=== PATIENT | female | born 1985 | race Caucasian/White ===

== ENCOUNTER → 2016-09-13 | Outpatient (CLI) | payer OTHER ==
[2016-09-13 12:03] LABS: ESTRADIOL < 19.0 PG/ML; LUTEINIZING HORMONE 1.3 mIU/mL
[2016-09-13 12:04] LABS: FOLLICLE STIMULATING HORMONE 1.8 mIU/mL
== END ==
LOC: M WUC 10:13
PROVIDERS: ATTEND Obstetrics & Gynecology
DX: N97.9 Female infertility, unspecified (principal)

== ENCOUNTER → 2016-10-02 | Outpatient (CLI) | payer OTHER | LOC: M WUC 08:36 | PROVIDERS: ATTEND Obstetrics & Gynecology | DX: N97.9 Female infertility, unspecified (principal) ==

== ENCOUNTER → 2016-11-05 | Outpatient (CLI) | payer OTHER | LOC: M WUC 15:59 | PROVIDERS: ATTEND Obstetrics & Gynecology | DX: N91.4 Secondary oligomenorrhea (principal) ==

== ENCOUNTER → 2016-11-12 | Outpatient (CLI) | payer OTHER | LOC: M WUC 15:59 | PROVIDERS: ATTEND Obstetrics & Gynecology | DX: Z32.01 Encounter for pregnancy test, result positive (principal) ==

== ENCOUNTER → 2016-11-14 | Outpatient (CLI) | payer OTHER | LOC: M WUC 15:54 | PROVIDERS: ATTEND Obstetrics & Gynecology | DX: Z32.01 Encounter for pregnancy test, result positive (principal) ==

== ENCOUNTER → 2016-11-29 | Outpatient (CLI) | payer OTHER ==
[2016-11-29 19:43] LABS: BASO # 0.1 10^3/uL (0.0-0.2); BASO % 0.6 % (0.0-1.0); EOS # 0.1 10^3/uL (0.0-0.50); IMMATURE GRANULOCYTE % 0.2 % (0-0); LYMPH # 2.5 10^3/uL (1.5-4.5); LYMPH % 29.7 % (24.0-44.0); MEAN CORPUSCULAR HGB CONC 33.1 g/dl (32.0-36.5); MEAN CORPUSCULAR VOLUME 90.9 fl (80.0-96.0); MONO # 0.5 10^3/uL (0.0-0.8); MONO % 6.1 % (0.0-5.0); NEUTROPHILS # 5.2 10^3/uL (1.8-7.7); NEUTROPHILS % 62.4 % (36.0-66.0); PLATELET COUNT, AUTOMATED 166 10^3/uL (150-450); RED CELL DISTRIBUTION WIDTH 12.1 % (11.5-14.5); WHITE BLOOD COUNT 8.4 10^3/uL (4.0-10.0)
[2016-11-29 19:55] LABS: ADD MORPHOLOGY? NO
[2016-12-02 11:01] LABS: HBsAg Prenatal NEGATIVE (NEGATIVE)
== END ==
LOC: M WUC 16:03
PROVIDERS: ATTEND Obstetrics & Gynecology
DX: Z36 Encounter for antenatal screening of mother (principal)

== ENCOUNTER → 2017-02-26 | Outpatient (CLI) | payer OTHER ==
--- NOTE | 2017-02-26 12:49 | REP ---
OBSTETRIC SONOGRAPHY: HISTORY: Supervision of for anatomy. FINDINGS: Scanning through the gravid uterus demonstrates a viable single intrauterine gestation in a cephalic lie. motion is observed and heart rate is recorder 141 beats per minute. A posterior grade 0 placenta is seen without evidence of previa or abruption. Amniotic fluid is subjectively normal. Closed cervical length is viewed transabdominally at 5.9 cm. No extrauterine abnormality is observed. No anomaly is seen. The following anatomic structures are identified today and felt to be unremarkable: cranium, choroid plexus, cavum, cerebellum and posterior fossa, face and profile, lungs, four-chamber heart with left and right ventricular outflow tract views, diaphragm, left-sided stomach, abdominal wall cord insertion, three-vessel cord, kidneys and bladder, spine, and upper and lower extremities. Biometry Chart: BPD 4.5 cm = 19 weeks 5 days HC 16.7 cm = 19 weeks 2 days AC 12.9 cm = 18 weeks 3 days FL 2.9 cm = 18 weeks 6 days HL 3.0 cm = 20 weeks 0 days CD 1.9 cm = 18 weeks 5 days HC/AC ratio 1.29 (1.06-1.25). Cephalic index normal 0.76. Estimated weight 255 grams, 0 pounds 9 ounces, 34th percentile for 19 weeks 1 day. IMPRESSION: Viable single intrauterine gestation at 19 weeks 1 day by today's composite sonographic criteria. SAMULE by today's sonography July 22, 2017. No anomaly is seen. Signed by Remi Lindsey MD 02/26/2017 03:09 P
== END ==
LOC: M RAD 11:19
PROVIDERS: ATTEND Obstetrics & Gynecology
DX: Z34.82 Encounter for supervision of other normal pregnancy, second trimester (principal); Z3A.19 19 weeks gestation of pregnancy

== ENCOUNTER → 2017-04-19 | Outpatient (CLI) | payer OTHER ==
[2017-04-19 11:56] LABS: HEMATOCRIT 36.2 % (36.0-47.0); HEMOGLOBIN 11.8 g/dl (12.0-16.0); MEAN CORPUSCULAR HEMOGLOBIN 29.8 pg (27.0-33.0); MEAN CORPUSCULAR HGB CONC 32.6 g/dl (32.0-36.5); MEAN CORPUSCULAR VOLUME 91.4 fl (80.0-96.0); PLATELET COUNT, AUTOMATED 166 10^3/uL (150-450); RED BLOOD COUNT 3.96 10^6/uL (4.00-5.40); RED CELL DISTRIBUTION WIDTH 12.2 % (11.5-14.5); WHITE BLOOD COUNT 7.3 10^3/uL (4.0-10.0)
[2017-04-19 12:14] LABS: GLUCOSE CHALLENGE TEST 1 HOUR 126 MG/DL (LESS THAN 140)
[2017-04-21 08:47] LABS: TYPE AND SCREEN 1 1
== END ==
LOC: M WUC 08:43
DX: Z36.89 Encounter for other specified antenatal screening (principal); Z3A.00 Weeks of gestation of pregnancy not specified
CPT/HCPCS: 82950

== ENCOUNTER → 2017-06-23 | Outpatient (REF) | payer OTHER | LOC: M LAB REF 16:55 | DX: Z34.83 Encounter for supervision of other normal pregnancy, third trimester (principal) ==

== ENCOUNTER 2017-07-22 14:35 | Inpatient (IN) | payer OTHER ==
[2017-07-22 15:51] LABS: HEMATOCRIT 38.2 % (36.0-47.0); HEMOGLOBIN 12.6 g/dl (12.0-15.5); MEAN CORPUSCULAR HEMOGLOBIN 28.5 pg (27.0-33.0); MEAN CORPUSCULAR VOLUME 86.4 fl (80.0-96.0); PLATELET COUNT, AUTOMATED 166 10^3/uL (150-450); RED BLOOD COUNT 4.42 10^6/uL (4.00-5.40); RED CELL DISTRIBUTION WIDTH 13.7 % (11.5-14.5); WHITE BLOOD COUNT 6.4 10^3/uL (4.0-10.0)
[2017-07-22] MEDS: LR 1,000 ML IV (15:53)
[2017-07-22] MEDS: OXYTOCIN DRIP 30 UNITS in APPROPRIATE DILUENT 1 EA IV ×2 (15:59→22:34)
[2017-07-22] MEDS: LACTATED RINGER'S 1000 ML IV (17:12)
[2017-07-22] MEDS ORDERED: FENTANYL 2MCG/ML ROPIVACAINE 0.2% IN 0.9% NACL 200ML IVBAG As Ordered (19:12)
[2017-07-22 22:21] LABS: CORD GAS ABE A -6.8; CORD GAS ABE V -3.1; CORD GAS HCO3 A 23.1 MEQ/L; CORD GAS HCO3 V 25.1 MEQ/L; CORD GAS O2 SAT A 35.5 %; CORD GAS O2 SAT V 40.6 %; CORD GAS PCO2 A 64.4 mmHg; CORD GAS PCO2 V 57.3 mmHg; CORD GAS PH A 7.172 UNITS; CORD GAS PH V 7.259 UNITS; CORD GAS PO2 A 20.4 mmHg; CORD GAS PO2 V 20.1 mmHg; CORD GAS SBC A 17.5 MEQ/L; CORD GAS SBC V 20.5 MEQ/L; CORD GAS TCO2 V 26.8 MEQ/L
[2017-07-22] MEDS ORDERED: MEASLES,MUMPS,RUBELLA VACCINE INJ (MMR-II) (90707) SC (22:45)
[2017-07-22] MEDS ORDERED: ONDANSETRON 4MG/2ML VIAL (J2405) IV (22:45)
[2017-07-22] MEDS ORDERED: METHYLERGONOVINE MALEATE 0.2 MG TAB PO (22:45)
[2017-07-23] MEDS: DIBUCAINE 1% OINTMENT 30GM TOP (00:28)
[2017-07-23] MEDS: ACETAMINOPHEN 500 MG TAB PO ×3 (05:11→19:41)
[2017-07-23] MEDS: IBUPROFEN 800 MG TAB PO ×2 (05:41→14:46)
[2017-07-23] MEDS: PRENATAL VITAMINS CHEWABLE TABLET PO (07:54)
[2017-07-23 11:43] LABS: FETAL SCREEN PROF. 1 1
[2017-07-23] MEDS: RHOGAM 300 MCG (1500 IU) INJ (J2790) IM (11:52)
[2017-07-23] MEDS: DOCUSATE SODIUM 100 MG CAP PO (19:40)
[2017-07-24] MEDS: PRENATAL VITAMINS CHEWABLE TABLET PO (09:03)
== END 2017-07-24 14:00 | disposition home or self-care (01) | DRG 775 ==
LOC: M LDI 14:35 → M OBS 23:55
PROVIDERS: Advanced Practice Midwife
PROC: 10E0XZZ Delivery of Products of Conception, External Approach (ICD-10-PCS; principal; 2017-07-22)
PROC: 3E033VJ Introduction of Other Hormone into Peripheral Vein, Percutaneous Approach (ICD-10-PCS; 2017-07-22)
PROC: 0HQ9XZZ Repair Perineum Skin, External Approach (ICD-10-PCS; 2017-07-22)
PROC: 30233S1 Transfusion of Nonautologous Globulin into Peripheral Vein, Percutaneous Approach (ICD-10-PCS; 2017-07-23)
DX: O48.0 Post-term pregnancy (principal); Z37.0 Single live birth; Z3A.40 40 weeks gestation of pregnancy; O70.0 First degree perineal laceration during delivery

== ENCOUNTER → 2022-04-19 | Outpatient (REF) | payer OTHER ==
[~2022-04-19] MED LIST: COLA100C5 PO; IBUP-359 PO; PRENTAB9 PO; TYLE500T78 PO
== END ==
LOC: M SFHCWAGY 13:12
PROVIDERS: ATTEND Specialist
DX: Z01.419 Encounter for gynecological examination (general) (routine) without abnormal findings (principal)
CPT/HCPCS: 87624; G0123

== ENCOUNTER → 2023-04-29 | Outpatient (CLI) | payer OTHER | LOC: M WHC 08:57 | PROVIDERS: ATTEND Specialist | DX: Z12.31 Encounter for screening mammogram for malignant neoplasm of breast (principal) ==

== ENCOUNTER → 2023-04-29 | Outpatient (REF) | payer OTHER | LOC: M SFHCWAGY 13:04 | PROVIDERS: ATTEND Specialist | DX: Z01.419 Encounter for gynecological examination (general) (routine) without abnormal findings (principal) | CPT/HCPCS: 87624; G0123 ==